=== PATIENT | female | born 1965 | race Caucasian/White ===

== ENCOUNTER 2019-08-26 22:41 | Emergency (ER) | payer SELFPAY ==
[~2019-08-26] VITALS: Ht 167.6 cm; Wt 130.0 kg
[~2019-08-26 22:41] MED LIST: AMBIEN10 MG PO; BLOOD GLUCOSE TEST S XX; CELEXA40 MG PO; GLUCOTROL XL2.5 MG PO; GLUCOTROL5 MG PO; LISINOPRIL5 MG PO; LOVASTATIN10 MG PO; LOVASTATIN20 M1 PO; LOVASTATIN20 MG PO; METFORMIN1000 MG PO; METFORMIN500 MG PO; SEROQUEL XR300 MG PO
[2019-08-26 23:46] LABS: URINE BILIRUBIN - DIPSTICK NEGATIVE (NEGATIVE); URINE BLOOD DIPSTICK TRACE-INTACT (NEGATIVE); URINE COLOR YELLOW; URINE GLUCOSE - DIPSTICK 250 mg/dL (NEGATIVE); URINE KETONE NEGATIVE (NEGATIVE); URINE LEUK ESTERASE NEGATIVE (NEGATIVE); URINE NITRITE - DIPSTICK NEGATIVE (Negative); URINE PH 6.5 (4.5-8.0); URINE PROTEIN - DIPSTICK NEGATIVE (NEG-TRACE); URINE SPECIFIC GRAVITY 1.025; URINE UROBILINOGEN - DIPSTICK 0.2 E.U./dL (0.2)
[2019-08-26 23:47] LABS: HEMATOCRIT 46.2 % (37.0-47.0); IMMATURE GRANULOCYTES 0.5 % (0.0-5.0); MEAN CELL VOLUME 86.4 fL CALC (80.0-100.0); MEAN CORPUSCULAR HGB CONC 32.5 g/L CALC (32.0-36.0); NEUT# 6.31 thou/uL (2.00-7.15); RED BLOOD COUNT 5.35 mill/uL (4.20-5.60); RED CELL DISTRI WIDTH 14.1 % (11.5-15.5)
[2019-08-27] LABS: ALBUMIN 4.2 g/dL (3.2-5.0); ALKALINE PHOSPHATASE 112 u/l (38-126); BUN 18 mg/dL (7-17); BUN/CREATININE RATIO 32 (12-20 (CALC)); CARBON DIOXIDE 30 mmol/l (22-30); CHLORIDE 99 mmol/l (95-108); CREATININE 0.6 mg/dL (0.5-1.0); GFR > 60 ML/MIN (>=60 (CALC)); GFR FOR AFR.AMER. > 60 ML/MIN (>=60 (CALC)); SGOT/AST 19 u/l (14-36); SODIUM 137 mmol/l (137-146); TOTAL PROTEIN 7.8 g/dL (6.3-8.2)
[2019-08-27 00:01] LABS: ANION GAP 12 (6-22 (CALC)); BILIRUBIN, TOTAL 0.2 mg/dL (0.0-1.4)
[2019-08-27 00:11] LABS: MYOGLOBIN 13 ng/mL (0 - 62)
[2019-08-27] MEDS ORDERED: ANTIVERT PO (00:32)
[2019-08-27 01:04] VITALS: BP 126/78
== END 2019-08-27 00:55 | disposition home or self-care (01) | DRG 149 ==
LOC: ED 22:41
PROVIDERS: Family Medicine
DX: H81.11 Benign paroxysmal vertigo, right ear (principal); E11.9 Type 2 diabetes mellitus without complications; I10 Essential (primary) hypertension; F17.210 Nicotine dependence, cigarettes, uncomplicated